=== PATIENT | female | born 1965 | race Caucasian/White ===

== ENCOUNTER 2016-12-26 19:27 | Emergency (ER) | payer OTHER ==
[~2016-12-26] VITALS: Ht 149.9 cm; Wt 49.9 kg
[2016-12-26 19:27] VITALS: BP_SYST 146
[2016-12-26] MEDS ORDERED: methylPREDNISolone SOD SUCC/PF 62.5 MG/ML VIAL IVP ONE ×2 (19:45→21:00)
[2016-12-26] MEDS ORDERED: ALBUTEROL SULFATE 0.083% 2.5 MG/3 ML VIAL.NEB INH ONE ×2 (19:45→19:46)
[2016-12-26] MEDS ORDERED: MAGNESIUM SULFATE IN WATER 100 ML IV ONE (19:45)
[2016-12-26] MEDS ORDERED: LevALBUTEROL HCL 1.25 MG/0.5 ML *CONC.* VIAL.NEB (XOPENEX CONC.) INH ONE (19:45)
[2016-12-26] MEDS ORDERED: NACL 0.9% 1,000 ML IV ONE (21:00)
[2016-12-26] MEDS ORDERED: EPINEPHrine 1 MG/ML AMP SUBCUT ONE (21:00)
[2016-12-26 22:03] VITALS: BP_SYST 146
== END 2016-12-26 22:03 | disposition home or self-care (01) ==
LOC: SED 19:27
DX: J45.901 Unspecified asthma with (acute) exacerbation (principal)
CPT/HCPCS: 71010; 94150; 94640; 96361; 96365; 96375; 96376; 99285; J0171; J2930; J3475; J7030